=== PATIENT | female | born 1945 | race Caucasian/White ===

== ENCOUNTER 2016-10-08 14:12 | Emergency (ER) | payer BC ==
[~2016-10-08] VITALS: Ht 154.9 cm; Wt 85.0 kg
[~2016-10-08 14:12] MED LIST: BYSTOLIC; CEPHALEXIN500 M1 PO; LASIX 40MG TABL40 MG PO; MYCARDIS PO; PRAVACHOL 40MG40 MG PO; PRILOSEC 20MG20 MG PO; SYNTHROID 0.0.025 MG
[2016-10-08 14:16] VITALS: TEMP 97.9
[2016-10-08] MEDS ORDERED: COZAAR100 MG PO (14:18)
[2016-10-08 14:57] LABS: PH 5 (5-8); SQUAMOUS EPITHELIAL None Seen /hpf; URINE APPEARANCE Clear; URINE BACTERIA None Seen /hpf; URINE BILIRUBIN Negative (NEGATIVE); URINE BLOOD Negative (NEGATIVE); URINE COLOR Yellow; URINE GLUCOSE Negative (NEGATIVE); URINE KETONE Trace (NEGATIVE); URINE RBC 0-2 /hpf; URINE UROBILINOGEN Negative (NEGATIVE); URINE WBC 0-2 /hpf
[2016-10-08 15:09] LABS: BASO % 0.3 % (0.0-2.0); EOS # 0.2 (0.0-0.7); EOS % 3.1 % (0-4.0); GRAN # 4.3 (1.4-6.5); HEMATOCRIT 43.9 % (37.0-47.0); HEMOGLOBIN 14.2 g/dl (12.5-16.0); LYMPH # 1.5 (1.2-3.4); LYMPH % 22.6 % (20.0-51.0); MEAN CELL VOLUME 95 fl (80.0-100.0); MEAN CORPUSCULAR HEMOGLOBIN 31 pg (27.0-31.0); MEAN CORPUSCULAR HGB CONC 32 g/dl (33.0-37.0); MEAN PLATELET VOLUME 9.9 fl (7.4-10.4); MONO # 0.4 (0.1-0.6); MONO % 6.7 % (1.7-9.3); PLATELET COUNT 246 K/mm3 (130-400); RED BLOOD COUNT 4.61 M/mm3 (4.10-5.30); REDCELL DISTRIBUTION WIDTH-CV 15.5 % (11.5-14.5); WHITE BLOOD COUNT 6.5 K/mm3 (4.8-10.8)
[2016-10-08 15:23] LABS: ADJUSTED CALCIUM 9.5 mg/dL (8.4-10.2); ALBUMIN 4.3 gm/dL (3.5-5.0); BILIRUBIN,TOTAL 1.1 mg/dL (0.0-1.0); C-REACTIVE PROTEIN 2.1 mg/dL (0.0-0.9); CALCIUM 9.7 mg/dL (8.4-10.2); CREATININE, serum 1.42 mg/dL (0.52-1.25); POTASSIUM 4.1 mmol/L (3.4-5.0); TOTAL PROTEIN 7.5 gm/dL (6.4-8.2)
[2016-10-08 16:58] VITALS: BP 117/76; PULSE 72
== END 2016-10-08 16:45 | disposition home or self-care (01) ==
LOC: COL.ER 14:12
PROVIDERS: Physician Assistant
DX: R10.32 Left lower quadrant pain (principal); R29.898 Other symptoms and signs involving the musculoskeletal system; I10 Essential (primary) hypertension; Z87.891 Personal history of nicotine dependence; Z87.442 Personal history of urinary calculi; K80.20 Calculus of gallbladder without cholecystitis without obstruction; E27.8 Other specified disorders of adrenal gland; D25.9 Leiomyoma of uterus, unspecified
CPT/HCPCS: J7030; Q9967

== ENCOUNTER → 2017-02-04 | Outpatient (CLI) | payer BC ==
[~2017-02-04] MED LIST changes: +COZAAR100 MG PO
== END ==
LOC: MC.RAD 08:20
DX: Z12.31 Encounter for screening mammogram for malignant neoplasm of breast (principal); Z90.12 Acquired absence of left breast and nipple
CPT/HCPCS: G0202

== ENCOUNTER → 2018-02-05 | Outpatient (CLI) | payer BC | LOC: MC.RAD 06:55 | DX: Z12.31 Encounter for screening mammogram for malignant neoplasm of breast (principal) ==

== ENCOUNTER 2018-03-20 07:01 | Inpatient (IN) | payer BC, MEDICARE ==
[~2018-03-20] VITALS: Ht 154.9 cm; Wt 76.6 kg
[2018-03-20] VITALS (354 sets, daily range): BP systolic 121–137; BP diastolic 59–83; PULSE 67–83; TEMP 97.8–99.1; O2SAT 68–100
[2018-03-20 07:38] LABS: BASO % 0.4 % (0.0-2.0); EOS # 0.2 (0.0-0.7); GRAN # 4.7 (1.4-6.5); GRAN % 64.3 % (42.2-75.2); HEMATOCRIT 42.7 % (37.0-47.0); LYMPH # 1.9 (1.2-3.4); LYMPH % 26.2 % (20.0-51.0); MEAN CELL VOLUME 96 fl (80.0-100.0); MEAN CORPUSCULAR HEMOGLOBIN 32 pg (27.0-31.0); MEAN CORPUSCULAR HGB CONC 33 g/dl (33.0-37.0); MEAN PLATELET VOLUME 9.9 fl (7.4-10.4); MONO # 0.4 (0.1-0.6); MONO % 5.7 % (1.7-9.3); PLATELET COUNT 220 K/mm3 (130-400); RED BLOOD COUNT 4.45 M/mm3 (4.10-5.30); REDCELL DISTRIBUTION WIDTH-CV 13.9 % (11.5-14.5)
[2018-03-20 07:50] LABS: BILIRUBIN,TOTAL 0.9 mg/dL (0.0-1.0); CALCIUM 9.5 mg/dL (8.4-10.2); CREATININE, serum 0.9 mg/dL (0.52-1.25); POTASSIUM 3.7 mmol/L (3.4-5.0)
[2018-03-20] MEDS ORDERED: ZOCOR 40MG40 MG PO (08:02)
[2018-03-20 13:39] LABS: COLLECTION METHOD CLEAN CATCH
[2018-03-20 13:50] LABS: MUCOUS Present /lpf; PH 6 (5-8); SQUAMOUS EPITHELIAL 0-2 /hpf; URINE APPEARANCE Clear; URINE BACTERIA None Seen /hpf; URINE BILIRUBIN Negative (NEGATIVE); URINE BLOOD Negative (NEGATIVE); URINE COLOR Yellow; URINE GLUCOSE Negative (NEGATIVE); URINE KETONE 1+ (NEGATIVE); URINE LEUKOCYTE ESTERASE Negative (NEGATIVE); URINE NITRATE Negative (NEGATIVE); URINE PROTEIN(semi-quant) Negative (NEGATIVE); URINE RBC 0-2 /hpf; URINE UROBILINOGEN Negative (NEGATIVE)
[2018-03-21] VITALS (316 sets, daily range): BP systolic 110–142; BP diastolic 46–64; PULSE 73–84; TEMP 97.6–99.1; O2SAT 87–100
[2018-03-21 05:35] LABS: BASO % 0.2 % (0.0-2.0); EOS % 0.2 % (0-4.0); GRAN # 7.8 (1.4-6.5); GRAN % 83.7 % (42.2-75.2); HEMATOCRIT 37.9 % (37.0-47.0); HEMOGLOBIN 12.3 g/dl (12.5-16.0); LYMPH # 0.9 (1.2-3.4); MEAN CELL VOLUME 96 fl (80.0-100.0); MEAN CORPUSCULAR HEMOGLOBIN 31 pg (27.0-31.0); MEAN CORPUSCULAR HGB CONC 33 g/dl (33.0-37.0); MEAN PLATELET VOLUME 9.4 fl (7.4-10.4); MONO # 0.5 (0.1-0.6); MONO % 5.6 % (1.7-9.3); PLATELET COUNT 173 K/mm3 (130-400); RED BLOOD COUNT 3.94 M/mm3 (4.10-5.30); REDCELL DISTRIBUTION WIDTH-CV 14.4 % (11.5-14.5)
[2018-03-21 05:48] LABS: ALBUMIN 2.8 gm/dL (3.5-5.0); BILIRUBIN,TOTAL 0.9 mg/dL (0.0-1.0); CALCIUM 8.1 mg/dL (8.4-10.2); CREATININE, serum 0.71 mg/dL (0.52-1.25); POTASSIUM 3.8 mmol/L (3.4-5.0); TOTAL PROTEIN 5.4 gm/dL (6.4-8.2)
[2018-03-21] MEDS ORDERED: MULTI VITAMINS1 TAB PO (16:25)
[2018-03-22 03:49] VITALS: BP 137/44; PULSE 78
[2018-03-22 06:04] LABS: BASO % 0.2 % (0.0-2.0); EOS % 0.5 % (0-4.0); GRAN # 6.6 (1.4-6.5); GRAN % 79.1 % (42.2-75.2); HEMOGLOBIN 11.3 g/dl (12.5-16.0); LYMPH % 12.3 % (20.0-51.0); MEAN CELL VOLUME 97 fl (80.0-100.0); MEAN CORPUSCULAR HEMOGLOBIN 31 pg (27.0-31.0); MEAN CORPUSCULAR HGB CONC 32 g/dl (33.0-37.0); MEAN PLATELET VOLUME 10.4 fl (7.4-10.4); MONO # 0.7 (0.1-0.6); MONO % 7.8 % (1.7-9.3); PLATELET COUNT 143 K/mm3 (130-400); RED BLOOD COUNT 3.62 M/mm3 (4.10-5.30); REDCELL DISTRIBUTION WIDTH-CV 14.5 % (11.5-14.5)
[2018-03-22 06:07] LABS: HEMATOCRIT 35.2 % (37.0-47.0)
[2018-03-22 06:11] LABS: CALCIUM 8.1 mg/dL (8.4-10.2); CREATININE, serum 0.64 mg/dL (0.52-1.25); MAGNESIUM 1.8 mg/dL (1.6-2.3); PHOSPHOROUS 2.3 mg/dL (2.5-4.5)
[2018-03-22 08:29] VITALS: BP 136/63; PULSE 79; TEMP 97.2
[2018-03-22 11:44] VITALS: BP 95/45; PULSE 68; TEMP 98.2
[2018-03-22 12:03] VITALS: BP 153/62; PULSE 90; TEMP 98.9
[2018-03-22 16:01] LABS: HEMOGLOBIN 11.1 g/dl (12.5-16.0)
[2018-03-22 16:02] LABS: HEMATOCRIT 34.4 % (37.0-47.0)
[2018-03-22 16:26] VITALS: BP 123/97; PULSE 85; TEMP 98.4
[2018-03-22 20:06] VITALS: BP 153/82; PULSE 105; TEMP 98.5
[2018-03-23] VITALS (7 sets, daily range): BP systolic 135–165; BP diastolic 63–91; PULSE 77–95; TEMP 98.3–98.8
[2018-03-23 03:14] LABS: BASO % 0.3 % (0.0-2.0); EOS # 0.1 (0.0-0.7); EOS % 1.2 % (0-4.0); GRAN # 5.3 (1.4-6.5); GRAN % 77.3 % (42.2-75.2); HEMOGLOBIN 10.9 g/dl (12.5-16.0); LYMPH # 0.8 (1.2-3.4); LYMPH % 11.3 % (20.0-51.0); MEAN CELL VOLUME 98 fl (80.0-100.0); MEAN CORPUSCULAR HEMOGLOBIN 31 pg (27.0-31.0); MEAN CORPUSCULAR HGB CONC 32 g/dl (33.0-37.0); MEAN PLATELET VOLUME 9.9 fl (7.4-10.4); MONO # 0.7 (0.1-0.6); MONO % 9.5 % (1.7-9.3); PLATELET COUNT 148 K/mm3 (130-400); RED BLOOD COUNT 3.48 M/mm3 (4.10-5.30); REDCELL DISTRIBUTION WIDTH-CV 14.6 % (11.5-14.5)
[2018-03-23 03:24] LABS: CALCIUM 8.1 mg/dL (8.4-10.2); CREATININE, serum 0.69 mg/dL (0.52-1.25); POTASSIUM 3.5 mmol/L (3.4-5.0)
[2018-03-23 03:59] LABS: PHOSPHOROUS 2.3 mg/dL (2.5-4.5)
[2018-03-24 04:12] VITALS: BP 154/57; PULSE 95; TEMP 98.4
[2018-03-24 06:37] LABS: BASO % 0.6 % (0.0-2.0); EOS # 0.1 (0.0-0.7); EOS % 1.9 % (0-4.0); GRAN # 4.3 (1.4-6.5); GRAN % 69.3 % (42.2-75.2); HEMOGLOBIN 10.7 g/dl (12.5-16.0); LYMPH # 1.1 (1.2-3.4); LYMPH % 17.1 % (20.0-51.0); MEAN CELL VOLUME 97 fl (80.0-100.0); MEAN CORPUSCULAR HEMOGLOBIN 31 pg (27.0-31.0); MEAN CORPUSCULAR HGB CONC 32 g/dl (33.0-37.0); MEAN PLATELET VOLUME 10.4 fl (7.4-10.4); MONO # 0.7 (0.1-0.6); MONO % 10.5 % (1.7-9.3); PLATELET COUNT 173 K/mm3 (130-400); RED BLOOD COUNT 3.45 M/mm3 (4.10-5.30); REDCELL DISTRIBUTION WIDTH-CV 14.6 % (11.5-14.5)
[2018-03-24 06:44] LABS: CALCIUM 8.5 mg/dL (8.4-10.2); CREATININE, serum 0.63 mg/dL (0.52-1.25); POTASSIUM 3.5 mmol/L (3.4-5.0)
[2018-03-24 06:48] LABS: HEMATOCRIT 33.3 % (37.0-47.0)
[2018-03-24 07:35] VITALS: BP 167/78; PULSE 82; TEMP 97.9
[2018-03-24 11:09] VITALS: BP 159/80; PULSE 84; TEMP 99
[2018-03-24 16:11] VITALS: BP 140/70; PULSE 97; TEMP 100.1
[2018-03-24 22:12] VITALS: BP 142/76; PULSE 103; TEMP 99.8
[2018-03-25] VITALS (9 sets, daily range): BP systolic 125–172; BP diastolic 53–70; PULSE 74–94; TEMP 98.1–99.1
== END 2018-03-25 17:20 | disposition home health service (06) | DRG 394 ==
LOC: COL.ER 07:01 → MEDICAL 09:04 → ICU 09:04 → COL.ER 13:00 → MEDICAL 03-21 15:37
PROVIDERS: Family Medicine; Hospitalist; Internal Medicine Gastroenterology; Physician Assistant
PROC: 0DBM8ZX Excision of Descending Colon, Via Natural or Artificial Opening Endoscopic, Diagnostic (ICD-10-PCS; principal; 2018-03-25 12:00)
PROC: 0DJ08ZZ Inspection of Upper Intestinal Tract, Via Natural or Artificial Opening Endoscopic (ICD-10-PCS; 2018-03-25 12:00)
DX: K55.032 Diffuse acute (reversible) ischemia of large intestine (principal); S52.302A Unspecified fracture of shaft of left radius, initial encounter for closed fracture; S52.612A Displaced fracture of left ulna styloid process, initial encounter for closed fracture; Z23 Encounter for immunization; I10 Essential (primary) hypertension; E78.5 Hyperlipidemia, unspecified; Z87.891 Personal history of nicotine dependence; W18.30XA Fall on same level, unspecified, initial encounter; S62.346A Nondisplaced fracture of base of fifth metacarpal bone, right hand, initial encounter for closed fracture; K21.9 Gastro-esophageal reflux disease without esophagitis; R55 Syncope and collapse; K80.20 Calculus of gallbladder without cholecystitis without obstruction; I65.23 Occlusion and stenosis of bilateral carotid arteries; D50.0 Iron deficiency anemia secondary to blood loss (chronic)
CPT/HCPCS: 99223-AI; 99232-AI; 99233-AI; 99239; J1170; J1650; J1956; J2270; J2405; J2704; J7030; Q4021; Q4050; Q9967

== ENCOUNTER → 2018-03-27 | Outpatient (REF) ==
[~2018-03-27] MED LIST changes: +MULTI VITAMINS1 TAB PO; +ZOCOR 40MG40 MG PO
== END ==
LOC: ZMSC 14:43
DX: Z01.89 Encounter for other specified special examinations (principal)

== ENCOUNTER → 2019-02-22 | Outpatient (CLI) | payer BC, MEDICARE | LOC: MC.RAD 07:04 | DX: Z12.31 Encounter for screening mammogram for malignant neoplasm of breast (principal); Z01.411 Encounter for gynecological examination (general) (routine) with abnormal findings ==

== ENCOUNTER → 2020-02-25 | Outpatient (CLI) | payer BC | LOC: MC.RAD 07:45 | DX: Z12.31 Encounter for screening mammogram for malignant neoplasm of breast (principal); Z01.411 Encounter for gynecological examination (general) (routine) with abnormal findings ==

== ENCOUNTER 2021-03-14 09:20 | Emergency (ER) | payer BC ==
[~2021-03-14] VITALS: Ht 154.9 cm; Wt 98.2 kg
[2021-03-14 09:51] VITALS: TEMP 98.1
[2021-03-14 10:37] LABS: BASO % 0.4 % (0.0-2.0); EOS # 0.2 K/mm3 (0.0-0.7); EOS % 2.6 % (0-4.0); GRAN # 5.6 K/mm3 (1.4-6.5); GRAN % 72.4 % (42.2-75.2); LYMPH # 1.3 K/mm3 (1.2-3.4); LYMPH % 16.7 % (20.0-51.0); MEAN CELL VOLUME 84 fl (80.0-100.0); MEAN CORPUSCULAR HGB CONC 29 g/dl (33.0-37.0); MEAN PLATELET VOLUME 9.8 fl (7.4-10.4); MONO # 0.6 K/mm3 (0.1-0.6); MONO % 7.5 % (1.7-9.3); PLATELET COUNT 293 K/mm3 (130-400); RED BLOOD COUNT 4.03 M/mm3 (4.10-5.30); REDCELL DISTRIBUTION WIDTH-CV 16.3 % (11.5-14.5)
[2021-03-14 10:46] LABS: HEMATOCRIT 33.8 % (37.0-47.0); HEMOGLOBIN 9.8 g/dl (12.5-16.0); MEAN CORPUSCULAR HEMOGLOBIN 24 pg (27.0-31.0)
[2021-03-14 10:49] LABS: ALANINE AMINOTRANSFERASE 7 U/L (0-55); ALBUMIN 3.5 gm/dL (3.4-4.8); ALKALINE PHOSPHATASE 81 U/L (40-150); ANION GAP 9 mmol/L (7-16); AST,SGOT 19 U/L (5-34); BILIRUBIN,TOTAL 0.6 mg/dL (0.2-1.2); BLOOD UREA NITROGEN 20 mg/dL (10-20); CALCIUM 8.9 mg/dL (8.4-10.2); CARBON DIOXIDE 30 mmol/L (23-31); CHLORIDE 106 mmol/L (98-107); CREATININE, serum 1.21 mg/dL (0.57-1.11); GLUCOSE 106 mg/dL (70-99); POTASSIUM 3.4 mmol/L (3.5-4.5); SODIUM 145 mmol/L (136-145); TOTAL PROTEIN 7.1 gm/dL (6.2-8.1)
[2021-03-14 10:55] LABS: TROPONIN-I < 0.010 ng/mL (0.00-0.033)
[2021-03-14] MEDS ORDERED: LEVAQUIN 5500 MG/TA1 PO (13:06)
[2021-03-14 14:37] VITALS: BP 114/73; PULSE 82
--- NOTE | 2021-03-15 12:47 | NUR ---
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 Patient states her out of pocket will be about $400 monthly and she cannot afford it. Patient then has Medicare Part A only as secondary insurance. Worker obtained copy of patient's insurance card and gave it to admissions staff to be entered in the EMR. Worker and patient discussed moving from her [employer] (employer policy) to Medicare A and adding B as well as a supplemental policy to best meet her needs given her age and medical conditions. Patient verbalizes understanding of this and worker provided information on health insurance volunteers at the [facility] that can help patient with future insurance plans. Worker collaborated with patient's nurse and provider regarding the above information.
== END 2021-03-14 14:40 | disposition home or self-care (01) ==
LOC: COL.ER 09:20
PROVIDERS: Personal Emergency Response Attendant
DX: D64.9 Anemia, unspecified (principal); J18.9 Pneumonia, unspecified organism; I10 Essential (primary) hypertension; K21.9 Gastro-esophageal reflux disease without esophagitis; E78.5 Hyperlipidemia, unspecified; Z87.891 Personal history of nicotine dependence; Z79.899 Other long term (current) drug therapy
CPT/HCPCS: J1956; Q9967